=== PATIENT | male | born 1995 | race Two or more races ===

== ENCOUNTER 2017-12-26 15:26 | Emergency (ER) | payer MEDICAID ==
[~2017-12-26] VITALS: Ht 180.3 cm; Wt 81.6 kg
[2017-12-26 15:37] VITALS: BP 138/78
[2017-12-26] MEDS ORDERED: KETOROLAC TROMETH 60MG/2ML VIAL IM ONE (17:00)
== END 2017-12-26 17:54 | disposition home or self-care (01) ==
LOC: EDAGE 15:26 → ER 15:26
DX: S13.4XXA Sprain of ligaments of cervical spine, initial encounter (principal); V43.52XA Car driver injured in collision with other type car in traffic accident, initial encounter; Y93.89 Activity, other specified; Y92.488 Other paved roadways as the place of occurrence of the external cause; Y99.8 Other external cause status
CPT/HCPCS: 72125